=== PATIENT | female | born 1960 | race Caucasian/White ===

== ENCOUNTER 2017-01-16 11:34 | Emergency (ER) | payer OTHER ==
[~2017-01-16] VITALS: Ht 170.2 cm; Wt 80.7 kg
--- NOTE | ~2017-01-16 | EKG ---
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
--- NOTE | ~2017-01-16 | EKG ---
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
[~2017-01-16 11:34] MED LIST: CLARITIN10 M2; MACROBID 100 M100 M1 PO; SINGULAIR
[2017-01-16 12:12] LABS: HEMATOCRIT 41.7 % (37.0-47.0); HEMOGLOBIN 14.2 gm/dL (12.0-15.0); MCH 30.5 pg (26.0-34.0); MCHC 34.1 g/dL (28.0-37.0); MCV 89.6 fL (80.0-100.0); PLATELET COUNT 302 thou/uL (150-400); RBC 4.65 mil/uL (4.20-5.00); RDW 13.4 % (10.5-14.5); WBC 26.1 thou/uL (4.0-11.0)
[2017-01-16 12:23] LABS: MANUAL DIFF YES
[2017-01-16 12:26] LABS: ANION GAP 13 mmol/L (7-16); BUN 9 mg/dL (7-18); CALCIUM 9.3 mg/dL (8.5-10.1); CHLORIDE 102 mmol/L (98-107); CO2 24 mmol/L (21-32); CREATININE 1.2 mg/dL (0.6-1.3); GLUCOSE 143 mg/dL (70-99); POTASSIUM 3.5 mmol/L (3.5-5.1); SODIUM 139 mmol/L (136-145)
[2017-01-16 12:32] LABS: ALBUMIN 3.6 g/dL (3.4-5.0); ALKALINE PHOSPHATASE 116 U/L (46-116); DIRECT BILIRUBIN 0.2 mg/dL (<0.1-0.3); MAGNESIUM 1.7 mg/dL (1.8-2.4); SGOT 11 U/L (15-37); SGPT 21 U/L (30-65); TOTAL BILIRUBIN 0.7 mg/dL (<0.1-1.0); TOTAL PROTEIN 7.7 g/dL (6.4-8.2); TROPONIN-I < 0.04 ng/mL (<0.04-0.07)
[2017-01-16] MEDS ORDERED: SINGULAIR 10 MG10 M1 PO (12:32)
[2017-01-16] MEDS ORDERED: ELIQUIS5 MG PO (12:32)
[2017-01-16] MEDS ORDERED: WELLBUTRIN SR150 MG PO (12:33)
[2017-01-16 13:04] LABS: ABSOLUTE NEUTROPHILS 24.8 thou/uL (1.4-8.2); PLATELET ESTIMATE NORMAL; TOTAL CELL COUNT 100
[2017-01-16 18:56] VITALS: BP 114/58
== END 2017-01-16 19:10 | disposition short-term general hospital (02) ==
LOC: ER 11:34
PROVIDERS: Nurse Practitioner
DX: A41.9 Sepsis, unspecified organism (principal); Z88.1 Allergy status to other antibiotic agents; Z88.0 Allergy status to penicillin; Z88.2 Allergy status to sulfonamides; Z88.8 Allergy status to other drugs, medicaments and biological substances